=== PATIENT | female | born 1995 | race Caucasian/White ===

== ENCOUNTER → 2017-01-11 | Outpatient (CLI) | payer OTHER | END | disposition home or self-care (01) | LOC: CFH 10:56 | PROVIDERS: ATTEND Obstetrics & Gynecology | DX: Z34.03 Encounter for supervision of normal first pregnancy, third trimester (principal); Z3A.00 Weeks of gestation of pregnancy not specified | CPT/HCPCS: 36415; 82950; 85025 ==

== ENCOUNTER 2017-02-08 14:22 | Outpatient (CLI) | payer OTHER ==
[~2017-02-08] VITALS: Ht 162.6 cm; Wt 85.5 kg
[2017-02-08 15:12] LABS: ASPARTATE AMINO TRANSFERASE 17 U/L (15-37); BLOOD UREA NITROGEN 8 mg/dL (7-18)
== END 2017-02-08 16:46 | disposition home or self-care (01) ==
LOC: LDOP 14:22
PROVIDERS: ATTEND Obstetrics & Gynecology
DX: O13.3 Gestational [pregnancy-induced] hypertension without significant proteinuria, third trimester (principal); O48.0 Post-term pregnancy; Z3A.40 40 weeks gestation of pregnancy
CPT/HCPCS: 36415; 59025; 80053; 81001; 81050; 82248; 82570; 84156; 84550; 85025; 99211; G0463

== ENCOUNTER 2017-02-16 05:04 | Inpatient (IN) | payer OTHER ==
[~2017-02-16] VITALS: Ht 162.6 cm; Wt 85.0 kg
[2017-02-16] MEDS: LACTATED RINGERS 1,000 ML IV SCH ×4 (05:34→19:11)
[2017-02-16] MEDS ORDERED: OXYTOCIN 30U/ 0.9% NaCL 500ML 500 ML IV PRN (05:34)
[2017-02-16] MEDS ORDERED: OXYTOCIN 30U/ 0.9% NaCL 500ML 500 ML IV ONE (05:34)
[2017-02-16] MEDS ORDERED: D5%-LACTATED RINGERS 1,000 ML IV SCH (05:34)
[2017-02-16] MEDS ORDERED: NEWBORN KIT ONE (05:42)
[2017-02-16] MEDS ORDERED: OXYTOCIN 30U/ 0.9% NaCL 500ML 500 ML ONE (05:43)
[2017-02-16] MEDS ORDERED: FENTANYL PF 100 MCG/2ML IV PRN (06:00)
[2017-02-16] MEDS ORDERED: SODIUM CITRATE/CITRIC ACID 30 ML UDC PO PRN (06:00)
[2017-02-16] MEDS ORDERED: ONDANSETRON 2MG/ML, 2ML IVPush PRN (06:00)
[2017-02-16] MEDS ORDERED: TERBUTALINE 1 MG/ML, 1ML SQ PRN (06:00)
[2017-02-16] MEDS ORDERED: CALCIUM CARBONATE 500 MG TAB.CHEW PO PRN (06:00)
[2017-02-16] MEDS ORDERED: METOCLOPRAMIDE 5 MG/ML, 2ML IVPush PRN (06:00)
[2017-02-16] MEDS ORDERED: FENTANYL PF 100 MCG/2ML IVPush PRN (06:00)
[2017-02-16 06:26] VITALS: BP 126/84
[2017-02-16] MEDS ORDERED: FENTANYL PF 100 MCG/2ML ONE (11:31)
[2017-02-16] MEDS ORDERED: FENTANYL/BUPIV./NS/PF 250 ML EPIDCONT ONE (13:11)
[2017-02-16] MEDS ORDERED: LIDOCAINE/PF 1.5%-EPI 1:200K, 30ML ONE ×2 (13:11→13:12)
[2017-02-16] MEDS ORDERED: LIDOCAINE 1%, 20ML ONE ×2 (13:12→23:37)
[2017-02-16 14:12] LABS: DAU SCREEN DISCLAIMER
[2017-02-16] MEDS ORDERED: MISOPROSTOL 200 MCG TABLET ONE (23:38)
[2017-02-17] MEDS ORDERED: OXYTOCIN 30U/ 0.9% NaCL 500ML 500 ML ONE (01:13)
[2017-02-17] MEDS ORDERED: METOCLOPRAMIDE 5 MG/ML, 2ML IV PRN (01:30)
[2017-02-17] MEDS ORDERED: ONDANSETRON 2MG/ML, 2ML IV PRN (01:30)
[2017-02-17] MEDS ORDERED: OXYcodone/APAP 5/325MG TABLET PO PRN ×2 (01:30)
[2017-02-17] MEDS ORDERED: MISOPROSTOL 200 MCG TABLET PR PRN (01:30)
[2017-02-17] MEDS ORDERED: IBUPROFEN 600 MG TABLET ONE (03:14)
[2017-02-17] MEDS ORDERED: OXYcodone/APAP 5/325MG TABLET ONE (03:14)
[2017-02-17 03:55] VITALS: BP 118/70
[2017-02-17] MEDS: OXYTOCIN 30U/ 0.9% NaCL 500ML 500 ML IV SCH ×9 (04:06→11:16)
[2017-02-17 07:25] VITALS: BP 109/72
[2017-02-17] MEDS: PRENATAL VIT/IRON/FA 1 EACH TABLET PO SCH (09:48)
[2017-02-17] MEDS: IBUPROFEN 600 MG TABLET PO PRN ×3 (09:48→23:02)
[2017-02-17] MEDS: DOCUSATE 100 MG CAPSULE PO PRN ×2 (09:48→23:02)
[2017-02-17 11:40] VITALS: BP 104/70
[2017-02-17 20:00] VITALS: BP 112/76
[2017-02-18 07:56] VITALS: BP 110/72
[2017-02-18] MEDS: PRENATAL VIT/IRON/FA 1 EACH TABLET PO SCH (09:00)
[2017-02-18] MEDS: IBUPROFEN 600 MG TABLET PO PRN (11:27)
[2017-02-18] MEDS ORDERED: IBUP-1222 PO (12:05)
[2017-02-18] MEDS ORDERED: OXYC-302 PO (12:06)
== END 2017-02-18 16:27 | disposition home or self-care (01) | DRG 774 ==
LOC: LDIP 05:04 → 2NW 02-17 03:20
PROVIDERS: ADMIT Obstetrics & Gynecology; ATTEND Obstetrics & Gynecology
PROC: 10E0XZZ Delivery of Products of Conception, External Approach (ICD-10-PCS; principal; 2017-02-17)
PROC: 0KQM0ZZ Repair Perineum Muscle, Open Approach (ICD-10-PCS; 2017-02-17)
PROC: 10907ZC Drainage of Amniotic Fluid, Therapeutic from Products of Conception, Via Natural or Artificial Opening (ICD-10-PCS; 2017-02-17)
PROC: 3E033VJ Introduction of Other Hormone into Peripheral Vein, Percutaneous Approach (ICD-10-PCS; 2017-02-17)
PROC: 00HU33Z Insertion of Infusion Device into Spinal Canal, Percutaneous Approach (ICD-10-PCS; 2017-02-17)
PROC: 3E0R3CZ (ICD-10-PCS; 2017-02-17)
PROC: 0W8NXZZ Division of Female Perineum, External Approach (ICD-10-PCS; 2017-02-17)
DX: O48.0 Post-term pregnancy (principal); O72.1 Other immediate postpartum hemorrhage; Z37.0 Single live birth; O99.52 Diseases of the respiratory system complicating childbirth; Z3A.41 41 weeks gestation of pregnancy; O70.1 Second degree perineal laceration during delivery; J45.909 Unspecified asthma, uncomplicated
CPT/HCPCS: 36415; 80307; 85025; 86850; 86900; J3010; J3490; J2590; J7120